=== PATIENT | female | born 1975 | race Caucasian/White ===

== ENCOUNTER 2017-02-05 15:06 | Emergency (ER) | payer SELFPAY ==
[2017-02-05] MEDS ORDERED: KETOROLAC TROMETHAMINE 30 MG/1ML VIAL IVP ONE (15:17)
[2017-02-05] MEDS ORDERED: 0.9 % SODIUM CHLORIDE 1,000 ML IV ONE (15:17)
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
[2017-02-05 15:35] LABS: BASOPHILS % 0.9 (0.0-1.5); EOSINOPHILS % 4.5 % (0.0-6.8); MEAN CORPUSCULAR HEMOGLOBIN 29.5 pg (28.0-34.0); MEAN CORPUSCULAR VOLUME 89.2 fl (80.0-100.0); MONOCYTES % 6.7 % (0.0-11.0)
[2017-02-05 15:49] LABS: eGFR (African) > 60; eGFR (Non-African) > 60
[2017-02-05 16:19] LABS: BARBITURATES NEGATIVE ng/mL (<300); METHAMPHETAMINE NON NEGATIVE ng/mL (<1000)
[2017-02-05 16:20] LABS: AMPHETAMINE NEGATIVE ng/mL (<1000); CANNABINOIDS NEGATIVE ng/mL (<50); COCAINE NEGATIVE ng/mL (<150); METHYLENEDIOXYMETHAMPHETAMINE NEGATIVE ng/mL (<500)
[2017-02-05 16:57] VITALS: BP 128/68
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
[2017-02-06 06:08] LABS: APPEARANCE,URINE CLEAR (CLEAR); COLOR,URINE YELLOW (YELLOW); OCCULT BLOOD,URINE NEGATIVE (NEGATIVE); UROBILINOGEN URINE 0.2 Eu (0.2-1.0)
== END 2017-02-05 16:55 | disposition home or self-care (01) ==
LOC: ED 15:06
DX: M54.5 Low back pain (principal); F19.20 Other psychoactive substance dependence, uncomplicated; V89.2XXA Person injured in unspecified motor-vehicle accident, traffic, initial encounter
CPT/HCPCS: 70450; 72125; 72131; 80053; 80320; 80377; 84703; 85025; J7030; 80365; 81002; 96360; 99284; G0480; G0481; G0482; S1016